=== PATIENT | female | born 1965 | race Caucasian/White ===

== ENCOUNTER → 2023-06-11 16:16 | Outpatient (REF) | payer BC, SELFPAY | LOC: WDC 16:16 | PROVIDERS: ATTENDING PHYSICIAN Obstetrics & Gynecology Gynecology; FAMILY PHYSICIAN Family Medicine | DX: Z12.31 Encounter for screening mammogram for malignant neoplasm of breast (principal) | CPT/HCPCS: 77063; 77067 ==

== ENCOUNTER → 2024-06-14 15:47 | Outpatient (REF) | payer BC, SELFPAY | LOC: WDC 15:47 | PROVIDERS: ATTENDING PHYSICIAN Obstetrics & Gynecology Gynecology; FAMILY PHYSICIAN Family Medicine | DX: Z12.31 Encounter for screening mammogram for malignant neoplasm of breast (principal) | CPT/HCPCS: 77063; 77067 ==